=== PATIENT | female | born 1970 | race African-American/Black ===

== ENCOUNTER 2017-08-24 11:22 | Emergency (ER) | payer BC ==
[~2017-08-24] VITALS: Ht 177.8 cm; Wt 102.0 kg
[~2017-08-24 11:22] MED LIST: ALDOMET250 MG OR; ALLOPURINOL100 MG PO; BENAZEPRIL10 MG PO; CARDIZEM CD 180 PO; COLCHICINE0.6 MG OR; FERROUS FUM324 MG PO; FLONASE NASAL50 MCG; FUROSEMIDE20 MG PO; HYDROCHLOROT12.5 MG OR; INDOMETHACIN50 MG OR; LASIX 20 MG TAB20 MG PO; LOPID600 MG PO; LORTAB 1010 MG PO; LORTAB 5 OR; LOTENSIN HCT1 TA2 OR; LOTENSIN20 MG OR; MAXZIDE-25 OR; MAXZIDE-2537.5 MG/TA PO; MECLIZINE12.5 M1 PO; MECLIZINE25 MG PO; METOPROL TAR100 MG PO; NAPROSYN500 MG PO; NU-IRON 150150 MG OR; PERCOCET 10/31 COMBO PO; PHENERGAN25 MG/TAB PO; TOPROL XL OR; TOPROL XL50 MG PO; TRICOR145 MG OR; XARELTO20 MG PO; [UNRECOGNIZED DRUG - OTHER] OR; allo PO
[2017-08-24] MEDS ORDERED: AMOXICILLIN500 M2 PO (11:41)
[2017-08-24 11:46] VITALS: BP 46/101
== END 2017-08-24 11:52 | disposition home or self-care (01) | DRG 153 ==
LOC: ED 11:22
DX: H66.91 Otitis media, unspecified, right ear (principal); I48.91 Unspecified atrial fibrillation; F17.210 Nicotine dependence, cigarettes, uncomplicated; I10 Essential (primary) hypertension; M10.9 Gout, unspecified

== ENCOUNTER 2018-05-23 11:17 | Emergency (ER) | payer OTHER ==
[~2018-05-23] VITALS: Ht 177.8 cm; Wt 98.0 kg
[2018-05-23] VITALS (7 sets, daily range): BP systolic 104–116; BP diastolic 56–69
[~2018-05-23 11:17] MED LIST changes: +AMOXICILLIN500 M2 PO; -allo PO
[2018-05-23] MEDS ORDERED: TOPROL XL PO (11:41)
[2018-05-23] MEDS ORDERED: ASPIRIN81 MG PO (11:45)
[2018-05-23] MEDS ORDERED: LASIX 40 MG40 MG/TAB PO (11:45)
[2018-05-23] MEDS ORDERED: K-TAB20 MEQ PO (11:46)
[2018-05-23 12:52] LABS: MEAN CORPUSCULAR HGB 27.1 pG CALC (26.0-32.0); NEUT# 5.42 thou/uL (2.00-7.15); RED BLOOD COUNT 1.99 mill/uL (4.20-5.60); RED CELL DISTRI WIDTH 17.3 % (11.5-15.5)
[2018-05-23 12:55] LABS: URINE BILIRUBIN - DIPSTICK NEGATIVE (NEGATIVE); URINE BLOOD DIPSTICK LARGE (NEGATIVE); URINE COLOR YELLOW; URINE GLUCOSE - DIPSTICK NEGATIVE (NEGATIVE); URINE KETONE NEGATIVE (NEGATIVE); URINE LEUK ESTERASE NEGATIVE (NEGATIVE); URINE NITRITE - DIPSTICK NEGATIVE (Negative); URINE PH 5.5 (4.5-8.0); URINE PROTEIN - DIPSTICK NEGATIVE (NEG-TRACE); URINE UROBILINOGEN - DIPSTICK 0.2 E.U./dL (0.2)
[2018-05-23 13:00] LABS: HEMOGLOBIN 5.4 g/dl (12.0-16.0); MEAN CELL VOLUME 90.5 fL CALC (80.0-100.0)
[2018-05-23 13:02] LABS: URINE EPITHELIAL CELLS FEW EPI/hpf (0-FEW); URINE RBC 25-50 RBC/hpf (0-5)
[2018-05-23] MEDS ORDERED: PROVERA10 MG PO (17:45)
== END 2018-05-23 20:05 | disposition left against medical advice (07) | DRG 761 ==
LOC: ED 11:17
PROVIDERS: Emergency Medicine
PROC: 30233N1 Transfusion of Nonautologous Red Blood Cells into Peripheral Vein, Percutaneous Approach (ICD-10-PCS; principal; 2018-05-23)
PROC: 30233N1 Transfusion of Nonautologous Red Blood Cells into Peripheral Vein, Percutaneous Approach (ICD-10-PCS; 2018-05-23)
DX: N93.8 Other specified abnormal uterine and vaginal bleeding (principal); D50.0 Iron deficiency anemia secondary to blood loss (chronic); I10 Essential (primary) hypertension; I48.91 Unspecified atrial fibrillation; M10.9 Gout, unspecified; F17.210 Nicotine dependence, cigarettes, uncomplicated; Z91.19 Patient's noncompliance with other medical treatment and regimen
CPT/HCPCS: P9016

== ENCOUNTER 2022-02-21 22:19 | Observation (INO) | payer OTHER, MEDICAID ==
[~2022-02-21] VITALS: Ht 177.8 cm; Wt 97.2 kg
[~2022-02-21 22:19] MED LIST changes: +ASPIRIN81 MG PO; +K-TAB20 MEQ PO; +LASIX 40 MG40 MG/TAB PO; +PROVERA10 MG PO; +TOPROL XL PO
[2022-02-21 23:13] VITALS: BP 131/89
[2022-02-21 23:15] VITALS: BP 121/83
[2022-02-21 23:25] LABS: IMMATURE GRANULOCYTES 0.1 % (0.0-5.0); MEAN CORPUSCULAR HGB 26.5 pG CALC (26.0-32.0); MEAN CORPUSCULAR HGB CONC 33.3 g/dL CAL (32.0-36.0); NEUT# 4.9 thou/uL (2.00-7.15); RED BLOOD COUNT 4.6 mill/uL (4.20-5.60); RED CELL DISTRI WIDTH 16.4 % (11.5-15.5)
[2022-02-21 23:26] LABS: HEMATOCRIT 36.6 % (37.0-47.0); HEMOGLOBIN 12.2 g/dl (12.0-16.0); MEAN CELL VOLUME 79.6 fL CALC (80.0-100.0)
[2022-02-21 23:30] VITALS: BP 112/74
[2022-02-21 23:39] LABS: ALBUMIN 4.4 g/dL (3.2-5.0); ALKALINE PHOSPHATASE 63 u/l (38-126); BILIRUBIN, TOTAL 0.4 mg/dL (0.0-1.4); BUN 12 mg/dL (7-17); BUN/CREATININE RATIO 14 (12-20 (CALC)); CARBON DIOXIDE 23 mmol/l (22-30); CHLORIDE 108 mmol/l (95-108); CREATININE 0.8 mg/dL (0.5-1.0); GFR FOR AFR.AMER. > 60 ML/MIN (>=60 (CALC)); GFR OTHER RACES > 60 ML/MIN (>=60 (CALC)); SODIUM 141 mmol/l (137-146); TOTAL PROTEIN 7.5 g/dL (6.3-8.2)
[2022-02-21 23:41] LABS: ANION GAP 14 (6-22 (CALC)); SGOT/AST 36 u/l (14-36)
[2022-02-21 23:45] VITALS: BP 111/77
[2022-02-21 23:51] LABS: MYOGLOBIN 48 ng/mL (0 - 62)
[2022-02-22] VITALS (34 sets, daily range): BP systolic 115–149; BP diastolic 70–91
[2022-02-22] MEDS ORDERED: FOLIC ACID1 MG PO (01:18)
[2022-02-22] MEDS ORDERED: CORRECTOL100 MG PO (01:19)
[2022-02-22 02:02] LABS: URINE BILIRUBIN - DIPSTICK NEGATIVE (NEGATIVE); URINE BLOOD DIPSTICK NEGATIVE (NEGATIVE); URINE COLOR YELLOW; URINE GLUCOSE - DIPSTICK NEGATIVE (NEGATIVE); URINE KETONE NEGATIVE (NEGATIVE); URINE LEUK ESTERASE NEGATIVE (NEGATIVE); URINE PROTEIN - DIPSTICK NEGATIVE (NEG-TRACE); URINE SPECIFIC GRAVITY 1.015; URINE UROBILINOGEN - DIPSTICK 0.2 E.U./dL (0.2)
[2022-02-22 02:16] LABS: URINE NITRITE - DIPSTICK NEGATIVE (Negative)
== END 2022-02-22 13:08 | disposition home or self-care (01) | DRG 310 ==
LOC: ED 22:19 → ED-I 02-22 00:02 → ED 02-22 00:02 → ED-I 02-22 00:05 → ED 02-22 00:23 → ICU 02-22 00:24
PROVIDERS: Emergency Medicine; ADMIT Internal Medicine; ATTEND Internal Medicine
DX: I48.91 Unspecified atrial fibrillation (principal); I48.92 Unspecified atrial flutter; I10 Essential (primary) hypertension; E78.5 Hyperlipidemia, unspecified; M10.9 Gout, unspecified; N92.0 Excessive and frequent menstruation with regular cycle; D64.9 Anemia, unspecified; F17.200 Nicotine dependence, unspecified, uncomplicated; Z79.82 Long term (current) use of aspirin